=== PATIENT | male | born 1975 | race Caucasian/White ===

== ENCOUNTER 2016-07-25 14:08 | Emergency (ER) | payer MEDICARE | END 2016-07-25 15:30 | disposition home or self-care (01) | LOC: ER 14:08 | DX: S61.211A Laceration without foreign body of left index finger without damage to nail, initial encounter (principal); I10 Essential (primary) hypertension; Z87.891 Personal history of nicotine dependence; Z79.899 Other long term (current) drug therapy; W45.8XXA Other foreign body or object entering through skin, initial encounter ==

== ENCOUNTER 2016-10-22 14:52 | Emergency (ER) | payer MEDICARE | END 2016-10-22 16:05 | disposition home or self-care (01) | LOC: ER 14:52 | DX: N49.2 Inflammatory disorders of scrotum (principal); L72.3 Sebaceous cyst; F41.9 Anxiety disorder, unspecified; F17.220 Nicotine dependence, chewing tobacco, uncomplicated; Z87.442 Personal history of urinary calculi ==